=== PATIENT | male | born 1980 | race Hispanic/Latino ===

== ENCOUNTER 2020-09-19 09:35 | Emergency (ER) | payer OTHER ==
[~2020-09-19] VITALS: Ht 167.6 cm; Wt 56.0 kg
[2020-09-19] MEDS ORDERED: TOBRAMYCIN SULF OD (11:12)
[2020-09-19 11:43] VITALS: BP 117/83
[2020-09-20] MEDS ORDERED: GENTAMICIN0.3 % OD (10:43)
== END 2020-09-19 11:43 | disposition home or self-care (01) | DRG 125 ==
LOC: ED 09:35
DX: S05.01XA Injury of conjunctiva and corneal abrasion without foreign body, right eye, initial encounter (principal); X58.XXXA Exposure to other specified factors, initial encounter; Y92.89 Other specified places as the place of occurrence of the external cause; Y99.0 Civilian activity done for income or pay

== ENCOUNTER 2020-09-20 09:42 | Emergency (ER) | payer OTHER ==
[~2020-09-20] VITALS: Ht 167.6 cm; Wt 72.2 kg
[~2020-09-20 09:42] MED LIST: TOBRAMYCIN SULF OD
[2020-09-20] MEDS ORDERED: GENTAMICIN0.3 % OD (10:43)
[2020-09-20 10:54] VITALS: BP 127/69
== END 2020-09-20 10:54 | disposition home or self-care (01) | DRG 115 ==
LOC: ED 09:42
PROC: 08C8XZZ Extirpation of Matter from Right Cornea, External Approach (ICD-10-PCS; principal; 2020-09-20)
DX: T15.01XA Foreign body in cornea, right eye, initial encounter (principal); X58.XXXA Exposure to other specified factors, initial encounter